=== PATIENT | female | born 2005 | race Caucasian/White ===

== ENCOUNTER 2023-10-16 22:02 | Emergency (ER) | payer OTHER ==
[2023-10-16 22:20] VITALS: BP 129/72; O2SAT 100
--- NOTE | 2023-10-17 00:37 | ED Physician Documentation ---
PD HPI UPPER EXT INJURY - Stated complaint Stated Complaint: RIGH HAND FINGER LAC - Chief complaint Chief Complaint: Laceration - History obtained from History obtained from: Patient - Additonal information Additional information: HPI from patient. 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 She is UTD on tetanus immunization. Denies numbness, weakness. She is right hand dominant. 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 : None HEENT: None Psych: None Musculoskeletal: None Derm: None - Past Surgical History Past Surgical History: Yes Ortho: Other HEENT: Tonsil/Adenoidectomy - Present Medications Home Medications: Ambulatory Orders Medication Instructions Recorded Confirmed No Known Home Medications 10/16/23 10/16/23 - Allergies Allergies/Adverse Reactions: Allergies Allergy/AdvReac Type Severity Reaction Status Date / Time azithromycin AdvReac Unknown Verified 10/16/23 22:15 omeprazole [From Prilosec] AdvReac Unknown Verified 10/16/23 22:14 - Social History Does the pt smoke?: No Smoking Status: Never smoker Does the pt drink ETOH?: No Does the pt have substance abuse?: No - Immunizations Immunizations are current?: Yes - POLST Patient has POLST: No PD ED PE NORMAL - Vitals Vital signs reviewed: Yes - General General: Alert and oriented X 3, No acute distress, Well developed/nourished - Extremities Extremities: No tenderness to palpate, Normal ROM s pain - Neuro Neuro: No motor deficit (FROM and strength in right pointer finger in both flexion and extension), No sensory deficit (LTS intact) PD ED PE EXPANDED - Extremities JOVI UE/Hands Visual: 1 - laceration (1 cm length) Results - Vitals Vitals: Vital Signs - 24 hr 10/16/23 22:08 Temperature 36.9 C Heart Rate 72 Respiratory 17 Rate Blood Pressure 129/72 O2 Saturation 100 Oxygen O2 Source Room air Procedures - Laceration (location) Finger right Length in cm: 1 Wound type: Linear, Into subcut fat Neurovascular status: Sensory intact, Motor intact, Vascular intact Tendon involvement: Tendon intact Wound preparation: Wound explored Skin layer closure: Dermabond, Steri strips Other: Patient tolerated well, No complications, Neurovascular intact, Tetanus UTD PD Medical Decision Making - ED course Complexity details: considered differential, d/w patient ED course: Discussed options for repair of the finger laceration, specifically sutures vs tissue adhesive. She prefers the latter; the wound edges approximate well at rest and with splint to avoid excess movement, tissue adhesive should give good results likely equivalent to suture repair. Two layers of tissue adhesive applied followed by benzoin-reinforced steri-strips. Finger splint placed. Return precautions and wound care instructions reviewed prior to d/c Departure - Departure Disposition: 01 Home, Self Care Clinical Impression: Laceration Condition: Good Instructions: ED Laceration Hand Comments: Your finger laceration was closed using tissue adhesive ("glue"), reinforced with steri-strips. Both the glue and the Steri-Strips should eventually fall off on their own within a week. You can use the splint to keep the finger steady until the strips and the glue fall off. Discharge Date/Time: 10/17/23 01:38
== END 2023-10-17 01:38 | disposition home or self-care (01) ==
LOC: ED 22:02
DX: S61.210A Laceration without foreign body of right index finger without damage to nail, initial encounter (principal); W26.0XXA Contact with knife, initial encounter; Y93.G9 Activity, other involving cooking and grilling
CPT/HCPCS: 12001; 99282

== ENCOUNTER 2023-10-29 14:51 | Emergency (ER) | payer OTHER ==
[2023-10-29 15:03] VITALS: O2SAT 100
[2023-10-29 15:19] LABS: BILIRUBIN,URINE NEGATIVE (NEGATIVE); CLARITY,URINE CLEAR (CLEAR); GLUCOSE, URINE (UA) NEGATIVE (NEGATIVE); HCG UR QUAL NEGATIVE; KETONES,URINE (UA) NEGATIVE (NEGATIVE); LEUKOCYTE ESTERASE, URINE NEGATIVE (NEGATIVE); NITRITE,URINE NEGATIVE (NEGATIVE); OCCULT BLOOD,URINE NEGATIVE (NEGATIVE); PH,URINE 7.5 PH (5.0-7.5); PROTEIN,URINE NEGATIVE (NEGATIVE); UROBILINOGEN,URINE 0.2 (NORMAL) E.U./dL (NORMAL)
[2023-10-29 15:31] LABS: BASOPHILS % (AUTO) 0.3 %; EOSINOPHILS # (AUTO) 0.1 10^3/uL (0.0-0.7); EOSINOPHILS % (AUTO) 1.4 %; HCT - HEMATOCRIT 37.4 % (37.0-47.0); HGB - HEMOGLOBIN 12.2 g/dL (12.0-16.0); LYMPHOCYTES # (AUTO) 1.4 10^3/uL (1.5-3.5); LYMPHOCYTES % (AUTO) 15.2 %; MEAN CORPUSCULAR HGB CONC 32.6 g/dL (32.0-36.0); MEAN PLATELET VOLUME 9.2 fL (7.9-10.8); MONOCYTES # (AUTO) 0.6 10^3/uL (0.0-1.0); MONOCYTES % (AUTO) 6.4 %; NEUTROPHILS % (AUTO) 76.6 %; PLT - PLATELET COUNT 217 10^3/uL (130-450); RED CELL DISTRIBUTION WIDTH 11.8 % (12.0-15.0); WHITE BLOOD COUNT 9.1 x10^3/uL (4.8-10.8)
[2023-10-29 15:44] LABS: ALBUMIN 4.4 g/dL (3.2-5.5); ALBUMIN/GLOBULIN RATIO 1.7 (1.0-2.2); BILIRUBIN,TOTAL 0.5 mg/dL (0.2-1.0); CALCIUM 9.9 mg/dL (8.5-10.3); CREATININE 0.7 mg/dL (0.6-1.3); POTASSIUM 3.8 mmol/L (3.5-4.5)
--- NOTE | 2023-10-29 18:09 | ED Physician Documentation ---
PD HPI ABD PAIN - Stated complaint Stated Complaint: PELVIC/LOWER BACK PXCASTILLO - Chief complaint Chief Complaint: Abd Pain - Additional information Additional information: 18-year-old female with 6 months presents emergency department for bilateral lower pelvic pain. Patient says most the pain is when she is having intercourse and mostly to the right pelvic region. She says that she is been having inconsistent menses since she had her baby no fevers or chills but is worried about a possible ectopic or ovarian cyst. She said that she tried to get in with her primary care provider but they were unable to get her in until the end of November and she says her insisted her coming into the emergency department for further evaluation of this. 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 : None HEENT: None Psych: None Musculoskeletal: None Derm: None Other Past Medical History: IBS - Past Surgical History Past Surgical History: Yes Ortho: Other HEENT: Tonsil/Adenoidectomy - Present Medications Home Medications: Ambulatory Orders Medication Instructions Recorded Confirmed Ferrous Sulfate [Feosol] 325 mg PO DAILY 10/29/23 10/29/23 Norethindrone [Jencycla] 0.35 mg PO DAILY 10/29/23 10/29/23 - Allergies Allergies/Adverse Reactions: Allergies Allergy/AdvReac Type Severity Reaction Status Date / Time azithromycin AdvReac Emesis Verified 10/29/23 14:56 omeprazole [From Prilosec] AdvReac Rash Verified 10/29/23 14:56 - Social History Does the pt smoke?: No Smoking Status: Never smoker Does the pt drink ETOH?: No Does the pt have substance abuse?: No - Immunizations Immunizations are current?: Yes - POLST Patient has POLST: No PD ED PE NORMAL - Vitals Vital signs reviewed: Yes - General General: Alert and oriented X 3, No acute distress, Well developed/nourished - Abdomen Abdomen: Normal bowel sounds, Soft, Non tender, Non distended, No organomegaly - Back Back: No CVA TTP - Derm Derm: Normal color, Warm and dry, No rash - Psych Psych: Normal mood, Normal affect PD ED PE EXPANDED - Female Female : Normal exam, French Polisher present (MINERVA Carpenter at bedside). No: Skin lesions, Vaginal Bleeding, Vaginal Discharge, CMT, Enlarged uterus Results - Vitals Vitals: Vital Signs - 24 hr 10/29/23 10/29/23 10/29/23 14:57 17:03 18:38 Temperature 36.4 C L Heart Rate 86 68 76 Respiratory 16 16 16 Rate Blood Pressure 122/70 132/80 H 126/82 H O2 Saturation 100 100 100 Oxygen O2 Source Room air - Labs Labs: Laboratory Tests 10/29/23 10/29/23 10/29/23 15:12 15:19 15:19 WBC 9.1 RBC 4.20 Hgb 12.2 Hct 37.4 MCV 89.0 MCH 29.0 MCHC 32.6 RDW 11.8 L Plt Count 217 MPV 9.2 Neut # (Auto) 7.0 H Lymph # (Auto) 1.4 L [place] # (Auto) 0.6 Eos # (Auto) 0.1 Baso # (Auto) 0.0 Absolute Nucleated RBC 0.00 Nucleated RBC % 0.0 Sodium 139 Potassium 3.8 Chloride 106 Carbon Dioxide 28 Anion Gap 5.0 L BUN 11 Creatinine 0.7 Estimated GFR (MDRD) 107 Glucose 99 Calcium 9.9 Magnesium Total Bilirubin 0.5 AST 16 ALT 17 Alkaline Phosphatase 80 Total Protein 7.0 Albumin 4.4 Globulin 2.6 Albumin/Globulin Ratio 1.7 Lipase 37 Urine Color YELLOW Urine Clarity CLEAR Urine pH 7.5 Ur Specific [place] 1.020 Urine Protein NEGATIVE Urine Glucose (UA) NEGATIVE Urine Ketones NEGATIVE Urine Occult Blood NEGATIVE Urine Nitrite NEGATIVE Urine Bilirubin NEGATIVE Urine Urobilinogen 0.2 (NORMAL) Ur Leukocyte Esterase NEGATIVE Ur Microscopic Review NOT INDICATED Urine Culture Comments NOT INDICATED Urine HCG, Qual NEGATIVE 10/29/23 15:19 WBC RBC Hgb Hct MCV MCH MCHC RDW Plt Count MPV Neut # (Auto) Lymph # (Auto) [place] # (Auto) Eos # (Auto) Baso # (Auto) Absolute Nucleated RBC Nucleated RBC % Sodium Potassium Chloride Carbon Dioxide Anion Gap BUN Creatinine Estimated GFR (MDRD) Glucose Calcium Magnesium 1.6 L Total Bilirubin AST ALT Alkaline Phosphatase Total Protein Albumin Globulin Albumin/Globulin Ratio Lipase Urine Color Urine Clarity Urine pH Ur Specific [place] Urine Protein Urine Glucose (UA) Urine Ketones Urine Occult Blood Urine Nitrite Urine Bilirubin Urine Urobilinogen Ur Leukocyte Esterase Ur Microscopic Review Urine Culture Comments Urine HCG, Qual - Rads (name of study) Pelvic ultrasound Relevant Findings:: Final report received, EMP independent interpretation of test, Other (Normal Doppler flow to the ovaries no ovarian torsion or ovarian cyst) PD Medical Decision Making - ED course ED course: 19 female presents emergency department for right pelvic pain. Differentials included but are not limited to ovarian torsion, ectopic , ovarian cyst urinalysis is normal hCG negative labs also normal. Labs unremarkable no leukocytosis no anemia. CMP is within normal limits mild hypomagnesemia 1.6 normal urinalysis. Patient also had a normal ER pelvic ultrasound no ovarian torsion's or ovarian cyst identified. At this point time I do not have any clear cause as to what is causing patient's right pelvic pain. I also did a pelvic exam with RN flute polisher Jenna at bedside and I was also not able to visualize any abnormalities as well. At this point in time patient is told to follow-up with HEALTH INSURANCE SALES AGENT outpatient and given ER return precautions. All questions answered safe for discharge. Departure - Departure Disposition: 01 Home, Self Care Clinical Impression: Pelvic pain in female Instructions: ED Pelvic Pain [facility] Comments: Thank you for trusting us with your care we have completed a urinalysis, labs, ultrasound we are not seeing any acute abnormalities or findings at this point in time. Follow-up with HEALTH INSURANCE SALES AGENT for further evaluation of this pelvic pain for possible physical therapy to see if this helps. Please come back to the emergency department for starting develop any fevers or chills, nausea vomiting, or any new or worsening symptoms. Wishing you a speedy recovery. Forms: PCP List Discharge Date/Time: 10/29/23 18:38
[2023-10-29 18:44] VITALS: BP 126/82
--- NOTE | 2023-10-29 19:54 | Ultrasound Report ---
PROCEDURE: Pelvic w/Doppler Complete INDICATIONS: right pelvic pain TECHNIQUE: Real-time transabdominal scanning was performed of the pelvic organs, with image documentation. Dopp ler interrogation was performed of the ovaries bilaterally. COMPARISON: None. FINDINGS: Uterus: Uterus is anteverted and normal in size at 7.5 x 3.5 x 4.7 cm. The myometrium is homogeneou s. The endometrium measures 8.7 mm in combined thickness. No uterine fibroids Ovaries: The right ovary measures 2.6 x 1.4 x 2.3 cm, with a calculated ovarian volume of 4.4 cc. T he left ovary measures 2.1 x 2.6 x 2.4 cm, with a calculated ovarian volume of 6.7 cc. Appropriate b lood flow to the ovaries with Doppler interrogation. Less than 12 follicles can be seen in each ova ry. No adnexal masses are seen. No cystic lesions measuring greater than 3 cm. Other: No pathologic free abdominal or pelvic fluid. IMPRESSION: Normal Doppler flow to the ovaries. No cause for patient's pain is identified. Reviewed by: Vinnie Thomas MD on 10/29/2023 7:53 PM PDT Approved by: Vinnie Thomas MD on 10/29/2023 7:53 PM PDT Station ID: [id number]
== END 2023-10-29 18:38 | disposition home or self-care (01) ==
LOC: ED 14:51
DX: R10.2 Pelvic and perineal pain (principal)
CPT/HCPCS: 36415; 80053; 81001; 81003; 81025; 83690; 83735; 85025; 87086; 93975; 99283; 99284

== ENCOUNTER 2024-01-28 22:54 | Emergency (ER) | payer OTHER ==
--- NOTE | 2024-01-28 23:12 | ED Physician Documentation ---
PD HPI ABD PAIN - Stated complaint Stated Complaint: ABD PX/L ANKLE PX - Chief complaint Chief Complaint: Abd Pain - History obtained from History obtained from: Patient - Additional information Additional information: HPI from patient. Patient complains of pain across her anterior pelvis, sudden onset tonight soon after the initiation of insertional intercourse with her significant other. Pain was sudden and severe, but has gradually improved though not resolved. She says she has had similar episodes in the past without an established etiology. Denies abnormal periods (specifically, denies irregular periods, heavy menses, particularly painful periods). 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 : None HEENT: None Psych: Anxiety, Other Musculoskeletal: None Derm: None - Past Surgical History Past Surgical History: Yes Ortho: Other HEENT: Tonsil/Adenoidectomy - Present Medications Home Medications: Ambulatory Orders Medication Instructions Recorded Confirmed Ferrous Sulfate [Feosol] 325 mg PO DAILY 10/29/23 10/29/23 Norethindrone [Jencycla] 0.35 mg PO DAILY 10/29/23 10/29/23 - Allergies Allergies/Adverse Reactions: Allergies Allergy/AdvReac Type Severity Reaction Status Date / Time azithromycin AdvReac Emesis Verified 01/28/24 23:06 omeprazole [From Prilosec] AdvReac Rash Verified 01/28/24 23:06 - Social History Does the pt smoke?: No Smoking Status: Never smoker Does the pt drink ETOH?: No Does the pt have substance abuse?: No - Immunizations Immunizations are current?: Yes - POLST Patient has POLST: No PD ED PE NORMAL - Vitals Vital signs reviewed: Yes - General General: Alert and oriented X 3, No acute distress, Well developed/nourished - Cardiac Cardiac: RRR, No murmur - Respiratory Respiratory: No respiratory distress, Clear bilaterally - Abdomen Abdomen: Soft, Non tender, Non distended, Other (TTP across anterior pelvis without rebound or guarding) - Back Back: No CVA TTP - Derm Derm: Normal color, Warm and dry Results - Vitals Vitals: Vital Signs - 24 hr 01/28/24 01/29/24 22:59 01:10 Temperature 36.7 C 36 C L Heart Rate 72 74 Respiratory 16 16 Rate Blood Pressure 129/73 122/68 O2 Saturation 100 99 Oxygen O2 Source Oxymask - Labs Labs: Laboratory Tests 01/28/24 01/28/24 01/28/24 22:28 22:28 23:15 WBC 8.5 RBC 4.06 L Hgb 12.0 Hct 36.6 L MCV 90.1 MCH 29.6 MCHC 32.8 RDW 12.1 Plt Count 231 MPV 9.2 Neut # (Auto) 5.1 Lymph # (Auto) 2.6 [place] # (Auto) 0.7 Eos # (Auto) 0.1 Baso # (Auto) 0.0 Absolute Nucleated RBC 0.00 Nucleated RBC % 0.0 Sodium 138 Potassium 3.9 Chloride 107 Carbon Dioxide 26 Anion Gap 5.0 L BUN 13 Creatinine 0.7 Estimated GFR (MDRD) 106 Glucose 104 Calcium 9.6 Total Bilirubin 0.3 AST 15 ALT 17 Alkaline Phosphatase 71 Total Protein 7.1 Albumin 4.6 Globulin 2.5 Albumin/Globulin Ratio 1.8 Lipase 32 Urine Color YELLOW Urine Clarity CLEAR Urine pH 7.5 Ur Specific [place] 1.025 Urine Protein NEGATIVE Urine Glucose (UA) NEGATIVE Urine Ketones NEGATIVE Urine Occult Blood NEGATIVE Urine Nitrite NEGATIVE Urine Bilirubin NEGATIVE Urine Urobilinogen 0.2 (NORMAL) Ur Leukocyte Esterase NEGATIVE Ur Microscopic Review NOT INDICATED Urine Culture Comments NOT INDICATED Urine HCG, Qual 01/28/24 23:15 WBC RBC Hgb Hct MCV MCH MCHC RDW Plt Count MPV Neut # (Auto) Lymph # (Auto) [place] # (Auto) Eos # (Auto) Baso # (Auto) Absolute Nucleated RBC Nucleated RBC % Sodium Potassium Chloride Carbon Dioxide Anion Gap BUN Creatinine Estimated GFR (MDRD) Glucose Calcium Total Bilirubin AST ALT Alkaline Phosphatase Total Protein Albumin Globulin Albumin/Globulin Ratio Lipase Urine Color Urine Clarity Urine pH Ur Specific [place] Urine Protein Urine Glucose (UA) Urine Ketones Urine Occult Blood Urine Nitrite Urine Bilirubin Urine Urobilinogen Ur Leukocyte Esterase Ur Microscopic Review Urine Culture Comments Urine HCG, Qual NEGATIVE - Rads (name of study) pelvic US complete Relevant Findings:: Prelim report reviewed, See rad report PD Medical Decision Making - ED course Complexity details: reviewed results, re-evaluated patient, considered differential, d/w patient ED course: Normal CBC with insignificant exceptions of low RBC, low hematocrit (though normal hemoglobin). ER abdominal panel is normal with the insignificant exception of low anion gap. Normal urinalysis, urine hCG negative. Ultrasound findings provide the most likely etiology for her pain; there is a complex/hemorrhagic ovarian cyst, left-sided, maximum diameter 3 cm. Although small, at this point this is the most likely explanation for her pain. No evidence of torsion on US. Results discussed with patient, return precautions reviewed. Patient reports good analgesia/pain relief with 6 mg IM Toradol, and declines further medication in the emergency department as well as declines Rx for pain medications. Advised to seek follow up with PCP for reevaluation and consideration of veneer taping machine operator referral. Departure - Departure Disposition: Home, Self Care Clinical Impression: Ovarian cyst Qualifiers: Laterality: left Qualified Code(s): N83.202 - Unspecified ovarian cyst, left side Condition: Good Instructions: ED Cyst Ovarian Follow-Up: LULA ALBERT NP [Primary Care Provider] - Comments: There were no concerning nor diagnostic findings on the blood tests, urinalysis. The ultrasound shows a left-sided ovarian cyst. It appears that there is some bleeding within the confines of the cyst; this is neither an alarming nor uncommon occurrence. Most ovarian cysts have a clear fluid, but occasionally, as is your case, there is bleeding into the cyst. Your ovarian cyst is rather small and will likely eventually reabsorb within the next week or two. Contact your primary care provider when the office is next open to arrange for the next available appointment. They can refer you to an MACHINERY REPAIR MAINTENANCE SUPERVISOR if they feel this is necessary. Discharge Date/Time: 01/29/24 01:10
[2024-01-28 23:32] LABS: BILIRUBIN,URINE NEGATIVE (NEGATIVE); GLUCOSE, URINE (UA) NEGATIVE (NEGATIVE); KETONES,URINE (UA) NEGATIVE (NEGATIVE); LEUKOCYTE ESTERASE, URINE NEGATIVE (NEGATIVE); NITRITE,URINE NEGATIVE (NEGATIVE); OCCULT BLOOD,URINE NEGATIVE (NEGATIVE); PH,URINE 7.5 PH (5.0-7.5); PROTEIN,URINE NEGATIVE (NEGATIVE); UROBILINOGEN,URINE 0.2 (NORMAL) E.U./dL (NORMAL)
[2024-01-28 23:36] LABS: CLARITY,URINE CLEAR (CLEAR)
[2024-01-28 23:38] LABS: BASOPHILS % (AUTO) 0.5 %; EOSINOPHILS # (AUTO) 0.1 10^3/uL (0.0-0.7); EOSINOPHILS % (AUTO) 1.3 %; HCT - HEMATOCRIT 36.6 % (37.0-47.0); LYMPHOCYTES # (AUTO) 2.6 10^3/uL (1.5-3.5); LYMPHOCYTES % (AUTO) 30.5 %; MEAN CORPUSCULAR HEMOGLOBIN 29.6 pg (27.0-31.0); MEAN CORPUSCULAR HGB CONC 32.8 g/dL (32.0-36.0); MEAN CORPUSCULAR VOLUME 90.1 fL (81.0-99.0); MEAN PLATELET VOLUME 9.2 fL (7.9-10.8); MONOCYTES # (AUTO) 0.7 10^3/uL (0.0-1.0); NEUTROPHILS # (AUTO) 5.1 10^3/uL (1.5-6.6); NEUTROPHILS % (AUTO) 59.6 %; PLT - PLATELET COUNT 231 10^3/uL (130-450); RED BLOOD COUNT 4.06 10^6/uL (4.20-5.40); RED CELL DISTRIBUTION WIDTH 12.1 % (12.0-15.0); WHITE BLOOD COUNT 8.5 x10^3/uL (4.8-10.8)
[2024-01-28] MEDS: KETOROLAC 60 MG/2 ML VIAL IM STA (23:39)
[2024-01-28 23:54] LABS: ALBUMIN 4.6 g/dL (3.2-5.5); ALBUMIN/GLOBULIN RATIO 1.8 (1.0-2.2); BILIRUBIN,TOTAL 0.3 mg/dL (0.2-1.0); CALCIUM 9.6 mg/dL (8.5-10.3); CREATININE 0.7 mg/dL (0.6-1.3); POTASSIUM 3.9 mmol/L (3.5-4.5); TOTAL PROTEIN 7.1 g/dL (6.4-8.9)
[2024-01-29 00:01] LABS: HCG UR QUAL NEGATIVE
--- NOTE | 2024-01-29 00:50 | Ultrasound Report ---
PROCEDURE: Pelvic w/Transvag+Doppler Comp INDICATIONS: sudden onset pain across anterior pelvis TECHNIQUE: Real-time scanning was performed of the pelvic organs, with image documentation. Additional endovagi nal scanning was necessary due to incomplete visualization of the adnexal and endometrial structures by transabdominal scanning. Doppler interrogation was performed of the ovaries bilaterally. COMPARISON: Pelvic ultrasound 10/29/2023 FINDINGS: Uterus: Uterus is anteverted and normal in size at 8.7 x 3.7 x 5.2 cm. The myometrium is homogeneou s. The endometrium measures 7.5 mm in combined thickness. Ovaries: The right ovary measures 2.0 x 1.5 x 2.4 cm, with a calculated ovarian volume of 3.9 cc. T he left ovary measures 3.1 x 3.8 x 3.3 cm, with a calculated ovarian volume of 20.7 cc. Complex cysti c structure is present within the right ovary measuring 1.8 x 1.9 x 3.0 cm. Other: No pathologic free abdominal or pelvic fluid. IMPRESSION: Complex/hemorrhagic cyst within the left ovary. Reviewed by: Jessica Horton MD on 01/29/2024 12:48 AM PDT Approved by: Jessica Horton MD on 01/29/2024 12:48 AM PDT Station ID: [id number]
[2024-01-29 01:14] VITALS: BP 122/68; O2SAT 99
== END 2024-01-29 01:10 | disposition home or self-care (01) ==
LOC: ED 22:54
DX: N83.202 Unspecified ovarian cyst, left side (principal)
CPT/HCPCS: 36415; 80053; 81001; 81003; 81025; 83690; 85025; 87086; 93975; 96372; 99284

== ENCOUNTER 2024-02-25 08:00 | Outpatient (CLI) | payer OTHER | END 2024-02-25 23:59 | disposition home or self-care (01) | LOC: LAB.N 08:00 | PROVIDERS: ATTEND Family Medicine | DX: R30.0 Dysuria (principal) | CPT/HCPCS: 87086; 87181 ==